=== PATIENT | male | born 1960 | race African-American/Black ===

== ENCOUNTER 2017-08-18 19:22 | Inpatient (IN) | payer MEDICAID, OTHER ==
[~2017-08-18] VITALS: Ht 165.1 cm; Wt 78.5 kg
[2017-08-18] MEDS ORDERED: KETOROLAC 30MG/ML VIAL IV STA (20:33)
[2017-08-18] MEDS ORDERED: SODIUM CHLORIDE 0.9% 1,000 ML IV ONE ×2 (20:33→22:00)
[2017-08-18] MEDS ORDERED: ONDANSETRON HCL 4MG/2ML VIAL IV STA ×2 (20:33→22:00)
[2017-08-18 20:58] LABS: BASOPHILS % 0.5 % (0.0-2.0); EOSINOPHILS % 0.8 % (0.0-5.0); HEMATOCRIT. 40.4 % (42.0-52.0); HEMOGLOBIN. 13.9 g/dL (14.0-18.0); LYMPHOCYTES % 26.1 % (20.0-50.0); MEAN CORPUSCULAR HEMOGLOBIN 28.2 pg (28.0-32.0); MEAN CORPUSCULAR VOLUME 82.2 fL (80.0-94.0); MONOCYTES % 11.4 % (2.0-8.0); NEUTROPHILS % 61.2 % (40.0-76.0); PLATELET 165 x1000/uL (130-400); RED BLOOD CELL COUNT 4.91 mill/uL (4.7-6.1); RED CELL DISTRIBUTION WIDTH 19.6 % (11.6-14.6)
[2017-08-18 21:04] LABS: CHLORIDE 91 mEq/L (98-107)
[2017-08-18 21:05] LABS: PROTHROMBIN TIME 9.9 sec (9.4-11.6)
[2017-08-18 21:08] LABS: ETHANOL BLOOD 114 mg/dL
[2017-08-18] MEDS ORDERED: INSULIN REGULAR (HUMULIN R) 300UNITS/3ML IV ONE (22:00)
[2017-08-18] MEDS ORDERED: MORPHINE SULFATE 4 MG/ML CPJ (NOT FOR IM USE) IV STA (22:00)
[2017-08-18 22:10] LABS: CLARITY URINE CLEAR (CLEAR); COLOR URINE YELLOW (YELLOW); KETONES URINE TRACE (NEGATIVE); LEUKOCYTE ESTERASE URINE NEGATIVE (NEGATIVE); NITRITE URINE NEGATIVE (NEGATIVE); OCCULT BLOOD URINE NEGATIVE (NEGATIVE); PROTEIN URINE NEGATIVE (NEGATIVE); SPECIFIC GRAVITY URINE 1.029 (1.005-1.030); UROBILINOGEN URINE 0.2 E.U./dL (0.2-1.0)
[2017-08-18 22:23] LABS: *AMPHETAMINES SCREEN URINE NEGATIVE (NEGATIVE)
[2017-08-18 22:24] LABS: *BARBITURATES SCREEN URINE NEGATIVE (NEGATIVE); *BENZODIAZEPINES SCREEN URINE NEGATIVE (NEGATIVE); *COCAINE SCREEN URINE NEGATIVE (NEGATIVE); METHADONE URINE SCREEN NEGATIVE (NEGATIVE); OPIATES URINE SCREEN NEGATIVE (NEGATIVE)
[2017-08-18 22:25] LABS: CANNABINOID URINE SCREEN NEGATIVE (NEGATIVE); PHENCYCLIDINE URINE SCREEN NEGATIVE (NEGATIVE)
[2017-08-19 01:00] LABS: CHLORIDE 100 mEq/L (98-107)
[2017-08-19 04:30] VITALS: BP 140/84
[2017-08-19] MEDS ORDERED: BENA40TA3 PO (04:51)
[2017-08-19] MEDS ORDERED: ASPI-1159 PO (04:51)
[2017-08-19] MEDS ORDERED: OMEP20TA2 PO (04:51)
[2017-08-19] MEDS ORDERED: ONDANSETRON HCL 4MG/2ML VIAL IV PRN ×2 (04:56→08:15)
[2017-08-19] MEDS ORDERED: IPRATROPIUM/ALBUTEROL 0.5-3(2.5)MG/3ML NEB INH PRN (04:58)
[2017-08-19] MEDS ORDERED: ACETAMINOPHEN 325MG TABLET PO PRN (04:58)
[2017-08-19] MEDS ORDERED: CLONIDINE 0.1MG TABLET PO PRN (04:58)
[2017-08-19] MEDS ORDERED: MAGNESIUM/ALUMINUM HYDROXIDE/SIMETHICONE 30ML UDC PO PRN (04:58)
[2017-08-19] MEDS ORDERED: LORAZEPAM 2MG/ML CPJ IV PRN (04:59)
[2017-08-19] MEDS ORDERED: DEXTROSE 50% WATER 50ML SYRINGE IV PRN (05:15)
[2017-08-19] MEDS: SODIUM CHLORIDE 0.9% 1,000 ML IV SCH ×2 (05:57→17:27)
[2017-08-19] MEDS ORDERED: MVI, ADULT NO.1 10 ML, FOLIC ACID 1 MG, THIAMINE HCL 100 MG in SODIUM CHLORIDE 0.9% 1,0... IV SCH ×4 (06:00)
[2017-08-19] MEDS: INSULIN LISPRO 100 UNITS/ML SUBCUT SCH ×4 (06:12→21:29)
[2017-08-19] MEDS: BLOOD SUGAR DIAGNOSTIC STRIP TEST SCH ×4 (06:12→21:32)
[2017-08-19 08:28] VITALS: BP 135/71
[2017-08-19] MEDS: ASPIRIN 81MG EC TABLET PO SCH (09:33)
[2017-08-19] MEDS: CHLORDIAZEPOXIDE 25MG CAPSULE PO SCH ×3 (09:33→21:28)
[2017-08-19] MEDS: HYDROCODONE/ACETAMINOPHEN 5/325MG TABLET PO PRN ×2 (09:33→21:32)
[2017-08-19 09:51] LABS: BASOPHILS % 0.4 % (0.0-2.0); EOSINOPHILS % 1.3 % (0.0-5.0); HEMATOCRIT. 35.7 % (42.0-52.0); LYMPHOCYTES % 29.4 % (20.0-50.0); MEAN CORPUSCULAR HEMOGLOBIN 27.2 pg (28.0-32.0); MEAN PLATELET VOLUME 8.3 fl (7.4-10.4); MONOCYTES % 14.1 % (2.0-8.0); NEUTROPHILS % 54.8 % (40.0-76.0); PLATELET 146 x1000/uL (130-400); RED BLOOD CELL COUNT 4.41 mill/uL (4.7-6.1); RED CELL DISTRIBUTION WIDTH 19.6 % (11.6-14.6)
[2017-08-19 10:39] LABS: AMMONIA < 10 uMol/L (<32)
[2017-08-19 11:26] LABS: LDL CHOLESTEROL 117 mg/dL (5-100)
[2017-08-19 11:27] LABS: CREATINE KINASE 87 IU/L (39-308)
[2017-08-19 11:28] LABS: HDL CHOLESTEROL 31 mg/dL (40-59)
[2017-08-19 11:32] LABS: CREATINE KINASE MB FRACTION 1.6 ng/mL (0.5-3.6)
[2017-08-19] MEDS: PANTOPRAZOLE SODIUM 40 MG/VIAL IV SCH (12:20)
[2017-08-19 12:36] VITALS: BP 148/91
[2017-08-19 15:40] LABS: CREATINE KINASE 99 IU/L (39-308)
[2017-08-19 16:50] VITALS: BP 146/75
[2017-08-19] MEDS: GEMFIBROZIL 600MG TABLET PO SCH (17:27)
[2017-08-19 19:55] VITALS: BP 119/73
[2017-08-19] MEDS: ATORVASTATIN CALCIUM 10MG TABLET PO SCH (21:28)
[2017-08-19] MEDS: INSULIN GLARGINE UD 100 UNITS/ML SYR SUBCUT SCH (21:30)
[2017-08-20] VITALS (8 sets, daily range): BP systolic 111–142; BP diastolic 66–94
[2017-08-20] MEDS: CHLORDIAZEPOXIDE 25MG CAPSULE PO SCH ×3 (07:12→20:08)
[2017-08-20] MEDS: SODIUM CHLORIDE 0.9% 1,000 ML IV SCH ×2 (07:12→20:11)
[2017-08-20] MEDS: BLOOD SUGAR DIAGNOSTIC STRIP TEST SCH ×4 (07:20→19:46)
[2017-08-20 08:19] LABS: AMMONIA 33 uMol/L (<32)
[2017-08-20 08:21] LABS: CHLORIDE 102 mEq/L (98-107)
[2017-08-20] MEDS: THIAMINE HCL 100MG TABLET PO SCH (08:25)
[2017-08-20] MEDS: GEMFIBROZIL 600MG TABLET PO SCH ×2 (08:25→17:29)
[2017-08-20] MEDS: INSULIN LISPRO 100 UNITS/ML SUBCUT SCH ×4 (08:25→20:10)
[2017-08-20] MEDS: ASPIRIN 81MG EC TABLET PO SCH (08:25)
[2017-08-20] MEDS: PANTOPRAZOLE SODIUM 40 MG/VIAL IV SCH (08:26)
[2017-08-20] MEDS: MULTIVITAMINS,THER W-MINERALS TABLET PO SCH (08:26)
[2017-08-20] MEDS: FOLIC ACID 1MG TABLET PO SCH (08:26)
[2017-08-20 08:27] LABS: AMYLASE 117 IU/L (25-115)
[2017-08-20 08:31] LABS: BASOPHILS % 0.4 % (0.0-2.0); EOSINOPHILS % 1.8 % (0.0-5.0); HEMATOCRIT. 34.5 % (42.0-52.0); HEMOGLOBIN. 11.5 g/dL (14.0-18.0); LYMPHOCYTES % 28.9 % (20.0-50.0); MEAN CORPUSCULAR HEMOGLOBIN 27.1 pg (28.0-32.0); MEAN CORPUSCULAR VOLUME 81.6 fL (80.0-94.0); MEAN PLATELET VOLUME 8.6 fl (7.4-10.4); NEUTROPHILS % 54.9 % (40.0-76.0); PLATELET 147 x1000/uL (130-400); RED BLOOD CELL COUNT 4.23 mill/uL (4.7-6.1); RED CELL DISTRIBUTION WIDTH 19.2 % (11.6-14.6)
[2017-08-20] MEDS: INSULIN GLARGINE UD 100 UNITS/ML SYR SUBCUT SCH ×2 (10:21→21:26)
[2017-08-20] MEDS: ATORVASTATIN CALCIUM 10MG TABLET PO SCH (20:08)
[2017-08-21] VITALS: BP 127/79
[2017-08-21 04:13] VITALS: BP 118/65
[2017-08-21] MEDS: SODIUM CHLORIDE 0.9% 1,000 ML IV SCH ×2 (06:42→09:35)
[2017-08-21] MEDS: CHLORDIAZEPOXIDE 25MG CAPSULE PO SCH ×2 (06:42→14:15)
[2017-08-21] MEDS: BLOOD SUGAR DIAGNOSTIC STRIP TEST SCH ×2 (06:44→12:20)
[2017-08-21 07:26] VITALS: BP 153/92
[2017-08-21 08:28] LABS: AMMONIA 24 uMol/L (<32)
[2017-08-21] MEDS: PANTOPRAZOLE SODIUM 40 MG/VIAL IV SCH (08:53)
[2017-08-21] MEDS: ASPIRIN 81MG EC TABLET PO SCH (08:54)
[2017-08-21] MEDS: THIAMINE HCL 100MG TABLET PO SCH (08:54)
[2017-08-21] MEDS: MULTIVITAMINS,THER W-MINERALS TABLET PO SCH (08:54)
[2017-08-21] MEDS: FOLIC ACID 1MG TABLET PO SCH (08:54)
[2017-08-21] MEDS: GEMFIBROZIL 600MG TABLET PO SCH (08:54)
[2017-08-21 08:55] LABS: CHLORIDE 106 mEq/L (98-107)
[2017-08-21 09:02] LABS: AMYLASE 108 IU/L (25-115)
[2017-08-21] MEDS: INSULIN LISPRO 100 UNITS/ML SUBCUT SCH ×2 (09:03→13:07)
[2017-08-21] MEDS: INSULIN GLARGINE UD 100 UNITS/ML SYR SUBCUT SCH (09:38)
[2017-08-21 10:20] LABS: BASOPHILS % 0.6 % (0.0-2.0); EOSINOPHILS % 1.3 % (0.0-5.0); HEMATOCRIT. 36.9 % (42.0-52.0); HEMOGLOBIN. 11.9 g/dL (14.0-18.0); MEAN CORPUSCULAR HEMOGLOBIN 26.9 pg (28.0-32.0); MEAN CORPUSCULAR VOLUME 83.3 fL (80.0-94.0); MEAN PLATELET VOLUME 8.5 fl (7.4-10.4); MONOCYTES % 14.6 % (2.0-8.0); NEUTROPHILS % 50.5 % (40.0-76.0); PLATELET 153 x1000/uL (130-400); RED BLOOD CELL COUNT 4.43 mill/uL (4.7-6.1); RED CELL DISTRIBUTION WIDTH 19.3 % (11.6-14.6)
[2017-08-21 12:52] VITALS: BP 147/91
[2017-08-21 15:11] VITALS: BP 140/86
[2017-08-22] MEDS ORDERED: OMEPRAZOLE 20MG CAPSULE EXTENDED RELEASE PO SCH (07:20)
== END 2017-08-21 15:45 | disposition home or self-care (01) | DRG 282 ==
LOC: ER 19:45 → 6WST 22:39 → EDBEDREQ 22:42 → ENRESERV 08-19 02:43 → 6WST 08-19 22:51
PROVIDERS: ADMIT Internal Medicine; ATTEND Internal Medicine
DX: K85.20 Alcohol induced acute pancreatitis without necrosis or infection (principal); K92.0 Hematemesis; K76.0 Fatty (change of) liver, not elsewhere classified; E11.65 Type 2 diabetes mellitus with hyperglycemia; E44.1 Mild protein-calorie malnutrition; D64.9 Anemia, unspecified; I10 Essential (primary) hypertension; E78.5 Hyperlipidemia, unspecified; F10.10 Alcohol abuse, uncomplicated; Z79.899 Other long term (current) drug therapy; Z79.82 Long term (current) use of aspirin; Z88.0 Allergy status to penicillin; Z82.49 Family history of ischemic heart disease and other diseases of the circulatory system; Z83.3 Family history of diabetes mellitus
CPT/HCPCS: 36415; 74176; 76700; 80048; 80053; 80061; 80305; 81003; 82140; 82150; 82270; 82550; 82553; 82962; 83036; 83690; 84443; 84484; 85025; 85610; 93005; 96361; 96374; 96375; 97162; 97535; 99285; C9113; G0482; J1815; J1885; J2270; J2405; J3411; J3490; J7030